=== PATIENT | male | born 1945 | race Two or more races ===

== ENCOUNTER → 2016-10-11 | Outpatient (CLI) | payer MEDICARE, BC, OTHER ==
--- NOTE | 2016-10-11 09:55 | REP ---
SCROTAL ULTRASOUND: Real-time sonographic evaluation of the scrotum and contents performed. Testicles appear normal in size and echotexture, right testicle measuring 3.8 x 2.1 x 3.2 cm and left testicle 4.2 x 2.3 x 3.2 cm. There is no testicular mass or torsion. Blood flow is seen in each testicle with duplex Doppler evaluation, resistive index of the right testicle 0.65 and left testicle 0.70. Reportedly there is a palpable abnormality of the right scrotum, which corresponds to an area of mild thickening of the wall of the scrotum with edema. This may represent inflammation. There is a small right hydrocele. No fluid collection is seen. IMPRESSION: Testicles appear normal. Palpable abnormality right scrotum corresponds to scrotal wall thickening and edema which may represent inflammatory change. There is a small right hydrocele. Signed by Jefe Villanueva MD 10/11/2016 08:06 P
== END ==
LOC: M RAD 08:36
PROVIDERS: ATTEND Physician Assistant
DX: N43.2 Other hydrocele (principal); N44.8 Other noninflammatory disorders of the testis

== ENCOUNTER → 2016-11-22 | Outpatient (CLI) | payer MEDICARE, BC, OTHER ==
--- NOTE | 2016-11-22 08:49 | REP ---
Scrotal sonography: History: Testicular pain. Hydrocele. Findings: High-resolution bilateral scrotal sonography is compared with the October 11, 2006 prior study. A small right hydrocele is again noted. The previously noted scrotal wall thickening is no longer apparent. There is no evidence of intratesticular mass lesion. Normal Doppler flow is again seen in both testes. Epididymides are unremarkable. No other abnormality. Right testis measures 4.1 x 1.9 x 3.1 cm. Left testicular dimensions are 4.5 x 2.0 x 2.7 cm. Doppler resistive indices are 0.63 bilaterally. Impression: Improved scrotal wall thickening. Small right hydrocele. Otherwise unremarkable scrotal sonography. Signed by Shahid Moctezuma MD 11/22/2016 03:36 P
== END ==
LOC: M RAD 06:44
PROVIDERS: ATTEND Urology
DX: N43.3 Hydrocele, unspecified (principal); N50.9 Disorder of male genital organs, unspecified

== ENCOUNTER → 2016-12-01 | Outpatient (CLI) | payer MEDICARE, BC, OTHER | LOC: M SMT 14:06 | PROVIDERS: ATTEND Urology | DX: N50.82 Scrotal pain (principal) | CPT/HCPCS: 36415; 81001; 84153; G0463 ==

== ENCOUNTER → 2017-02-27 | Outpatient (REF) | payer MEDICARE, OTHER ==
[2017-02-27 12:14] LABS: MEAN CORPUSCULAR HGB CONC 33.9 g/dl (32.0-36.5); MEAN CORPUSCULAR VOLUME 94.5 fl (80.0-96.0); RED CELL DISTRIBUTION WIDTH 13.5 % (11.5-14.5); WHITE BLOOD COUNT 6.8 K/mm3 (4.0-10.0)
[2017-02-27 13:38] LABS: ALBUMIN 3.5 GM/DL (3.2-5.2); ALBUMIN/GLOBULIN RATIO 1.21 (1.00-1.93); ALKALINE PHOSPHATASE 84 U/L (45-117); ALT/SGPT 44 U/L (12-78); ANION GAP 8 MEQ/L (8-16); AST/SGOT 25 U/L (15-37); BILIRUBIN,TOTAL 0.8 MG/DL (0.2-1.0); BLOOD UREA NITROGEN 18 MG/DL (7-18); CALCIUM LEVEL 8.2 MG/DL (8.8-10.2); CARBON DIOXIDE LEVEL 26 MEQ/L (21-32); CHLORIDE LEVEL 104 MEQ/L (98-107); CHOLESTEROL LEVEL 188 MG/DL (<200); CREATININE FOR GFR 0.82 MG/DL (0.70-1.30); GLOMERULAR FILTRATION RATE > 60.0 (>42); GLUCOSE, FASTING 87 MG/DL (83-110); POTASSIUM SERUM 4.1 MEQ/L (3.5-5.1); SODIUM LEVEL 138 MEQ/L (136-145); TOTAL PROTEIN 6.4 GM/DL (6.4-8.2); TRIGLYCERIDES LEVEL 181 MG/DL (<150)
== END ==
LOC: M SFHCPLAZ 07:55
PROVIDERS: ATTEND Family Medicine
DX: L30.4 Erythema intertrigo (principal); E78.00 Pure hypercholesterolemia, unspecified; Z11.59 Encounter for screening for other viral diseases

== ENCOUNTER → 2017-03-06 | Outpatient (REF) | payer MEDICARE, BC, OTHER ==
[2017-03-06 12:21] LABS: ALBUMIN 3.7 GM/DL (3.2-5.2); ALBUMIN/GLOBULIN RATIO 1.19 (1.00-1.93); BILIRUBIN,DIRECT 0.3 MG/DL (0.0-0.2); BILIRUBIN,TOTAL 1.2 MG/DL (0.2-1.0); TOTAL PROTEIN 6.8 GM/DL (6.4-8.2)
== END ==
LOC: M SFHCPLAZ 10:14
PROVIDERS: ATTEND Family Medicine
DX: E78.2 Mixed hyperlipidemia (principal)
CPT/HCPCS: 36415; 80076; G0463

== ENCOUNTER → 2017-06-20 | Outpatient (CLI) | payer MEDICARE, BC, OTHER ==
--- NOTE | 2017-06-20 12:16 | REP ---
Clinical: Back and flank pain. Comparison: 04/09/2010. Findings: Moderate acute right-sided obstructive uropathy including perinephric and periureteral stranding, mild hydroureteronephrosis and edematous enlargement to the right kidney is appreciated and secondary to a 3 mm obstructing calculus in the distal right ureter (image 129). Few nonobstructing right intrarenal calculi are also identified measuring up to approximately 4 mm. The left kidney demonstrates 1 mm nonobstructing calculus and hypodensities suggesting small cyst. The bladder is unremarkable. Liver, spleen, pancreas, gallbladder, and bilateral adrenal glands are normal for noncontrast evaluation. The enteric system is without obstruction or acute inflammatory process. Normal terminal ileum and appendix identified in the right lower quadrant. Pelvis demonstrates normal bladder and age-appropriate prostate/seminal vesicles. No ascites. No free air. No significant adenopathy. Abdominal aorta without aneurysm. Musculoskeletal structures demonstrate age-related degenerative changes. Lung bases are clear. Impression: Acute moderate right-sided obstructive uropathy with a 3 mm calculus in the distal right ureter. Bilateral nonobstructing calculi (right greater than left) up to 4 mm and suspected subcentimeter left renal cyst. Signed by Ernst Israel MD 06/20/2017 12:07 P
== END ==
LOC: M RAD 11:31
PROVIDERS: ATTEND Physician Assistant
DX: N13.4 Hydroureter (principal); N20.1 Calculus of ureter; N28.1 Cyst of kidney, acquired; M54.5 Low back pain; Z87.442 Personal history of urinary calculi

== ENCOUNTER → 2017-06-20 | Outpatient (CLI) | payer MEDICARE, BC, OTHER ==
--- NOTE | 2017-06-20 11:34 | REP ---
Clinical: History of nephroureterolithiasis. Comparison: 05/24/2010. Technique: Single supine view of the abdomen and pelvis. Findings: A 3 mm calculus overlies the lower pole right renal silhouette. Further evaluation of the urinary tract system is limited due to technique and overlying bowel gas pattern. No evidence for bowel obstruction. Skeletal structures demonstrate age-related degenerative changes. Stable phleboliths noted in the pelvis. Impression: Limited examination. Possible 3 mm nonobstructing right renal calculus. Further evaluation of the urinary check system is limited. Signed by Ernst Israel MD 06/20/2017 11:25 A
[2017-06-20 13:29] LABS: BASO % 0.4 % (0.0-1.0); EOS # 0.3 10^3/uL (0.0-0.50); IMMATURE GRANULOCYTE % 0.3 % (0-0); LYMPH # 1.3 10^3/uL (1.5-4.5); LYMPH % 12.2 % (24.0-44.0); MEAN CORPUSCULAR HEMOGLOBIN 32.1 pg (27.0-33.0); MEAN CORPUSCULAR HGB CONC 34.8 g/dl (32.0-36.5); MEAN CORPUSCULAR VOLUME 92.4 fl (80.0-96.0); MONO # 0.7 10^3/uL (0.0-0.8); MONO % 6.2 % (0.0-5.0); NEUTROPHILS # 8.2 10^3/uL (1.8-7.7); NEUTROPHILS % 77.9 % (36.0-66.0); PLATELET COUNT, AUTOMATED 211 10^3/uL (150-450); RED CELL DISTRIBUTION WIDTH 12.9 % (11.5-14.5); WHITE BLOOD COUNT 10.5 10^3/uL (4.0-10.0)
[2017-06-20 13:47] LABS: ALBUMIN 3.6 GM/DL (3.2-5.2); ALBUMIN/GLOBULIN RATIO 1.09 (1.00-1.93); ALKALINE PHOSPHATASE 107 U/L (45-117); ALT/SGPT 43 U/L (12-78); ANION GAP 8 MEQ/L (8-16); AST/SGOT 27 U/L (7-37); BILIRUBIN,TOTAL 1.3 MG/DL (0.2-1.0); BLOOD UREA NITROGEN 21 MG/DL (7-18); CARBON DIOXIDE LEVEL 26 MEQ/L (21-32); CHLORIDE LEVEL 108 MEQ/L (98-107); CREATININE FOR GFR 1.13 MG/DL (0.70-1.30); GLOMERULAR FILTRATION RATE > 60.0 (>42); GLUCOSE, FASTING 114 MG/DL (83-110); POTASSIUM SERUM 4.2 MEQ/L (3.5-5.1); SODIUM LEVEL 142 MEQ/L (136-145); TOTAL PROTEIN 6.9 GM/DL (6.4-8.2)
== END ==
LOC: M WUC 10:33
PROVIDERS: ATTEND Physician Assistant
DX: M54.5 Low back pain (principal); Z87.442 Personal history of urinary calculi

== ENCOUNTER → 2017-06-27 | Outpatient (REF) | payer MEDICARE, OTHER | LOC: M SMT 17:43 | PROVIDERS: ATTEND Nurse Practitioner Women's Health | DX: N13.2 Hydronephrosis with renal and ureteral calculous obstruction (principal) | CPT/HCPCS: 81001; 87086; G0463 ==

== ENCOUNTER → 2017-07-07 | Outpatient (CLI) | payer MEDICARE, BC, OTHER ==
[~2017-07-07] MED LIST: ATOR40TA75 PO; FLOM5CAP PO; TYLETAB14 PO
--- NOTE | 2017-07-07 12:06 | REP ---
Clinical: Nephroureterolithiasis. Technique: Single supine view of the abdomen and pelvis. Findings: A somewhat ovoid 3.5 mm calculus in the right maria luisa pelvis may reflect in the obstructing distal ureteral calculus identified on CT dated 06/20/2017 and correlation with physical examination is recommended. Further evaluation for urinary tract calcifications is limited due to technique and overlying bowel gas. There is no evidence for bowel obstruction. No obvious organomegaly. Skeletal structures demonstrate age-related degenerative changes. Impression: Cannot exclude 3.5 mm distal right ureteral calculus. Signed by Ernst Israel MD 07/07/2017 11:58 A
== END ==
LOC: M SMT 11:25
PROVIDERS: ATTEND Nurse Practitioner Women's Health
DX: N13.2 Hydronephrosis with renal and ureteral calculous obstruction (principal)
CPT/HCPCS: 74000; G0463

== ENCOUNTER → 2017-07-28 | Outpatient (CLI) | payer MEDICARE, BC, OTHER ==
--- NOTE | 2017-07-29 01:22 | ECGEPIP ---
Stationary ECG Study [facility] Test Date: 2017-07-28 Pat Name: ABDOULAYE BRINK Department: Room: - Gender: M [employer] Assistant: BEVERLY : 1945 Requested By: Becky HART Order Number: [id number] Reading MD: Thien Menchaca Measurements Intervals [place] Rate: 52 P: 25 OK: 202 QRS: 62 QRSD: 97 T: 35 QT: 406 QTc: 380 Interpretive Statements SINUS BRADYCARDIA Borderline first degree AV block Comparison tracing not on file Electronically Signed On 07-29-2017 1:22:04 EST by Thien Menchaca
== END ==
LOC: M EKG 13:37
PROVIDERS: ATTEND Nurse Practitioner Women's Health
DX: N13.2 Hydronephrosis with renal and ureteral calculous obstruction (principal); R94.31 Abnormal electrocardiogram [ECG] [EKG]

== ENCOUNTER → 2017-07-28 | Outpatient (CLI) | payer MEDICARE, BC, OTHER ==
--- NOTE | 2017-07-28 13:59 | REP ---
CHEST X-RAY: Two views. HISTORY: Ureteral stone with hydronephrosis. No comparison chest x-ray. FINDINGS: The lungs are well inflated and clear. The pleural angles are sharp. Cardiomediastinal silhouette is unremarkable. There are degenerative changes in the thoracic spine. No significant bony abnormality. IMPRESSION: No active disease. Signed by Shahid Moctezuma MD 07/28/2017 04:00 P
[2017-07-28 16:57] LABS: MEAN CORPUSCULAR HEMOGLOBIN 30.6 pg (27.0-33.0); MEAN CORPUSCULAR HGB CONC 33.2 g/dl (32.0-36.5); MEAN CORPUSCULAR VOLUME 92.3 fl (80.0-96.0); PLATELET COUNT, AUTOMATED 218 10^3/uL (150-450); WHITE BLOOD COUNT 6.7 10^3/uL (4.0-10.0)
[2017-07-28 17:09] LABS: INR 0.93
[2017-07-28 18:50] LABS: ANION GAP 3 MEQ/L (8-16); BLOOD UREA NITROGEN 16 MG/DL (7-18); CALCIUM LEVEL 8.8 MG/DL (8.8-10.2); CARBON DIOXIDE LEVEL 32 MEQ/L (21-32); CHLORIDE LEVEL 107 MEQ/L (98-107); GLOMERULAR FILTRATION RATE > 60.0 (>42); GLUCOSE, FASTING 86 MG/DL (83-110); POTASSIUM SERUM 4.8 MEQ/L (3.5-5.1); SODIUM LEVEL 142 MEQ/L (136-145)
== END ==
LOC: M SMT 13:10
PROVIDERS: ATTEND Nurse Practitioner Women's Health
DX: N13.2 Hydronephrosis with renal and ureteral calculous obstruction (principal)

== ENCOUNTER 2017-08-11 07:22 | Day surgery (SDC) | payer MEDICARE, BC, OTHER ==
[2017-08-11] MEDS ORDERED: PROPOFOL 200 MG/20 ML VIAL As Ordered (08:02)
[2017-08-11] MEDS ORDERED: LIDOCAINE 2% INJ 100 MG/5 ML SDV (FOR ANES.) As Ordered (08:02)
[2017-08-11] MEDS ORDERED: MIDAZOLAM INJ 2 MG/2 ML VIAL (J2250) As Ordered (08:03)
[2017-08-11] MEDS ORDERED: fentaNYL 100 MCG/2 ML INJECTION (J3010) As Ordered (08:03)
[2017-08-11] MEDS: LR 1,000 ML IV (08:15)
[2017-08-11] MEDS: CONRAY-60 60% 50ML VIAL (Q9961) As Ordered (09:23)
[2017-08-11] MEDS ORDERED: dexameTHASONE 4 MG/ML 1ML VIAL (J1100) As Ordered (09:36)
[2017-08-11] MEDS ORDERED: KETOROLAC 60 MG/2 ML VIAL (J1885) As Ordered (09:36)
[2017-08-11] MEDS ORDERED: ONDANSETRON 4MG/2ML VIAL (J2405) As Ordered (09:36)
[2017-08-11] MEDS ORDERED: fentaNYL 100 MCG/2 ML INJECTION (J3010) IV (10:30)
[2017-08-11] MEDS ORDERED: PERCOCET 5MG/325MG TAB PO ×2 (10:30)
[2017-08-11] MEDS ORDERED: ONDANSETRON 4MG/2ML VIAL (J2405) IV (10:30)
[2017-08-11] MEDS: PERCOCET 5MG/325MG TAB PO (11:05)
== END 2017-08-11 12:33 | disposition home or self-care (01) ==
LOC: M SDC 07:22
DX: N20.2 Calculus of kidney with calculus of ureter (principal); N13.1 Hydronephrosis with ureteral stricture, not elsewhere classified; N48.1 Balanitis; M54.40 Lumbago with sciatica, unspecified side; E78.5 Hyperlipidemia, unspecified; F34.1 Dysthymic disorder; F32.9 Major depressive disorder, single episode, unspecified; K57.90 Diverticulosis of intestine, part unspecified, without perforation or abscess without bleeding; E66.9 Obesity, unspecified; H91.10 Presbycusis, unspecified ear; Z79.899 Other long term (current) drug therapy; Z79.82 Long term (current) use of aspirin
CPT/HCPCS: 52356

== ENCOUNTER → 2017-08-25 | Outpatient (REF) | payer MEDICARE, OTHER | LOC: M SMT 17:05 | DX: R30.0 Dysuria (principal) | CPT/HCPCS: 87086 ==

== ENCOUNTER 2017-09-10 12:28 | Emergency (ER) | payer MEDICARE, BC, OTHER ==
[2017-09-10] MEDS: NS 1,000 ML IV (13:30)
[2017-09-10 13:35] LABS: BASO % 0.3 % (0.0-1.0); EOS # 0.4 10^3/uL (0.0-0.50); EOS % 3.5 % (0.0-3.0); HEMATOCRIT 39.5 % (42.0-52.0); HEMOGLOBIN 13.3 g/dl (14.0-18.0); IMMATURE GRANULOCYTE % 0.3 % (0-0); LYMPH % 16.8 % (24.0-44.0); MEAN CORPUSCULAR HEMOGLOBIN 30.5 pg (27.0-33.0); MEAN CORPUSCULAR HGB CONC 33.7 g/dl (32.0-36.5); MEAN CORPUSCULAR VOLUME 90.6 fl (80.0-96.0); MONO # 1.2 10^3/uL (0.0-0.8); MONO % 10.1 % (0.0-5.0); PLATELET COUNT, AUTOMATED 185 10^3/uL (150-450); RED BLOOD COUNT 4.36 10^6/uL (4.30-6.10); RED CELL DISTRIBUTION WIDTH 12.8 % (11.5-14.5); WHITE BLOOD COUNT 11.6 10^3/uL (4.0-10.0)
[2017-09-10 13:41] LABS: APPEARANCE, URINE HAZY (CLEAR); BACTERIA, URINE AUTO NEGATIVE (NEGATIVE); BILIRUBIN, URINE AUTO NEGATIVE (NEGATIVE); BLOOD, URINE BLOOD 2+ (NEGATIVE); COLOR, URINE YELLOW (YELLOW); GLUCOSE, URINE (UA) AUTO NEGATIVE (NEGATIVE); KETONE, URINE AUTO NEGATIVE (NEGATIVE); LEUKOCYTE ESTERASE, URINE AUTO NEGATIVE (NEGATIVE); MUCUS, URINE SMALL (NEGATIVE); NITRITE, URINE AUTO NEGATIVE (NEGATIVE); PROTEIN, URINE AUTO 1+ mg/dL (NEGATIVE); RBC, URINE AUTO 22 /HPF (0-3); SPECIFIC GRAVITY URINE AUTO 1.024 (1.002-1.035); SQUAMOUS EPITHELIAL CELL UR AU 0 /HPF (0-6); UROBILINOGEN, URINE AUTO 0.2 mg/dL (0.0-2.0); WBC, URINE AUTO 4 /HPF (0-3)
[2017-09-10 13:48] LABS: ANION GAP 7 MEQ/L (8-16); BLOOD UREA NITROGEN 22 MG/DL (7-18); CALCIUM LEVEL 8.2 MG/DL (8.8-10.2); CARBON DIOXIDE LEVEL 26 MEQ/L (21-32); CHLORIDE LEVEL 110 MEQ/L (98-107); CREATININE FOR GFR 1.13 MG/DL (0.70-1.30); GLOMERULAR FILTRATION RATE > 60.0 (>42); GLUCOSE, FASTING 131 MG/DL (70-100); POTASSIUM SERUM 3.5 MEQ/L (3.5-5.1); SODIUM LEVEL 143 MEQ/L (136-145)
[2017-09-10] MEDS: IMIPENEM/CILASTATIN 500 MG in D5W MINI-BAG PLUS 100 ML IV (14:37)
[2017-09-10] MEDS: LR 1,000 ML IV (14:37)
[2017-09-10 14:48] LABS: LACTIC ACID SEPSIS PROTOCOL 0.9 MMOL/L (0.4-2.0)
== END 2017-09-10 15:52 | disposition home or self-care (01) ==
LOC: M ED 12:28
DX: N13.30 Unspecified hydronephrosis (principal); Z96.0 Presence of urogenital implants; Z79.899 Other long term (current) drug therapy; Z79.82 Long term (current) use of aspirin
CPT/HCPCS: 74176

== ENCOUNTER → 2017-10-03 | Outpatient (REF) | payer MEDICARE, OTHER ==
[2017-10-03 13:58] LABS: APPEARANCE, URINE CLEAR (CLEAR); BACTERIA, URINE AUTO NEGATIVE (NEGATIVE); BILIRUBIN, URINE AUTO NEGATIVE (NEGATIVE); BLOOD, URINE BLOOD 2+ (NEGATIVE); COLOR, URINE YELLOW (YELLOW); GLUCOSE, URINE (UA) AUTO NEGATIVE (NEGATIVE); KETONE, URINE AUTO NEGATIVE (NEGATIVE); LEUKOCYTE ESTERASE, URINE AUTO TRACE (NEGATIVE); MUCUS, URINE SMALL (NEGATIVE); NITRITE, URINE AUTO NEGATIVE (NEGATIVE); PROTEIN, URINE AUTO NEGATIVE (NEGATIVE); RBC, URINE AUTO 1 /HPF (0-3); SPECIFIC GRAVITY URINE AUTO 1.008 (1.002-1.035); SQUAMOUS EPITHELIAL CELL UR AU 0 /HPF (0-6); UROBILINOGEN, URINE AUTO 0.2 mg/dL (0.0-2.0); WBC, URINE AUTO 7 /HPF (0-3)
== END ==
LOC: M SMT 13:32
DX: N13.5 Crossing vessel and stricture of ureter without hydronephrosis (principal)
CPT/HCPCS: 81001

== ENCOUNTER → 2017-10-05 | Outpatient (CLI) | payer MEDICARE, BC, OTHER | LOC: M SMT 08:58 | DX: N13.5 Crossing vessel and stricture of ureter without hydronephrosis (principal); N20.0 Calculus of kidney; N13.0 Hydronephrosis with ureteropelvic junction obstruction | CPT/HCPCS: 76770 ==

== ENCOUNTER → 2017-12-12 | Outpatient (REF) | payer MEDICARE, OTHER ==
[2017-12-12 18:26] LABS: AMORPHOUS SEDIMENT LARGE (NEGATIVE); APPEARANCE, URINE TURBID (CLEAR); BACTERIA, URINE AUTO NEGATIVE (NEGATIVE); BILIRUBIN, URINE AUTO NEGATIVE (NEGATIVE); BLOOD, URINE BLOOD NEGATIVE (NEGATIVE); COLOR, URINE YELLOW (YELLOW); GLUCOSE, URINE (UA) AUTO NEGATIVE (NEGATIVE); KETONE, URINE AUTO NEGATIVE (NEGATIVE); LEUKOCYTE ESTERASE, URINE AUTO NEGATIVE (NEGATIVE); NITRITE, URINE AUTO NEGATIVE (NEGATIVE); PROTEIN, URINE AUTO NEGATIVE (NEGATIVE); RBC, URINE AUTO 0 /HPF (0-3); SQUAMOUS EPITHELIAL CELL UR AU 0 /HPF (0-6); UROBILINOGEN, URINE AUTO 0.2 mg/dL (0.0-2.0); WBC, URINE AUTO 0 /HPF (0-3)
== END ==
LOC: M SMT 17:16
DX: R10.9 Unspecified abdominal pain (principal)
CPT/HCPCS: 81001

== ENCOUNTER → 2017-12-14 | Outpatient (CLI) | payer MEDICARE, BC, OTHER | LOC: M SMT 09:48 | DX: R10.9 Unspecified abdominal pain (principal); N20.0 Calculus of kidney; N28.1 Cyst of kidney, acquired | CPT/HCPCS: 76770 ==

== ENCOUNTER → 2017-12-18 | Outpatient (REF) | payer MEDICARE, OTHER ==
[2017-12-18 13:16] LABS: ALBUMIN 3.4 GM/DL (3.2-5.2); ALKALINE PHOSPHATASE 111 U/L (45-117); ALT/SGPT 36 U/L (12-78); ANION GAP 7 MEQ/L (8-16); AST/SGOT 23 U/L (7-37); BILIRUBIN,TOTAL 1.2 MG/DL (0.2-1.0); BLOOD UREA NITROGEN 18 MG/DL (7-18); CALCIUM LEVEL 8.6 MG/DL (8.8-10.2); CARBON DIOXIDE LEVEL 27 MEQ/L (21-32); CHLORIDE LEVEL 110 MEQ/L (98-107); CHOLESTEROL LEVEL 123 MG/DL (<200); CHOLESTEROL RISK RATIO 2.084 (<5); CREATININE FOR GFR 0.91 MG/DL (0.70-1.30); GLOMERULAR FILTRATION RATE > 60.0 (>42); GLUCOSE, FASTING 94 MG/DL (70-100); HDL CHOLESTEROL 59 MG/DL (>40); LDL CHOLESTEROL 52.4 MG/DL (<100); NON-HDL-C 64 MG/DL; POTASSIUM SERUM 4.3 MEQ/L (3.5-5.1); SODIUM LEVEL 144 MEQ/L (136-145); TOTAL PROTEIN 6.8 GM/DL (6.4-8.2); TRIGLYCERIDES LEVEL 58 MG/DL (<150)
== END ==
LOC: M SFHCPLAZ 09:01
DX: E78.2 Mixed hyperlipidemia (principal); R17 Unspecified jaundice
CPT/HCPCS: 80053

== ENCOUNTER → 2017-12-25 | Outpatient (CLI) | payer MEDICARE, OTHER | LOC: M LAB 10:44 | DX: M51.36 Other intervertebral disc degeneration, lumbar region (principal); M51.37 Other intervertebral disc degeneration, lumbosacral region; M41.86 Other forms of scoliosis, lumbar region; M43.16 Spondylolisthesis, lumbar region; M25.78 Osteophyte, vertebrae; M54.40 Lumbago with sciatica, unspecified side; M54.10 Radiculopathy, site unspecified | CPT/HCPCS: 72114 ==

== ENCOUNTER → 2017-12-27 | Outpatient (CLI) | payer MEDICARE, BC, OTHER | LOC: M RAD 16:04 | DX: M54.40 Lumbago with sciatica, unspecified side (principal) | CPT/HCPCS: 72148 ==

== ENCOUNTER → 2018-01-22 | Outpatient (CLI) | payer MEDICARE, BC, OTHER | LOC: M RAD 12:24 | DX: N13.5 Crossing vessel and stricture of ureter without hydronephrosis (principal); N28.1 Cyst of kidney, acquired | CPT/HCPCS: 76775 ==

== ENCOUNTER → 2019-01-11 | Outpatient (CLI) | payer MEDICARE, BC, OTHER ==
[~2019-01-11] MED LIST changes: +ASPI81TA26 PO; +ESTE500T PO; +FISH500C PO; +FLOM0.4C39 PO; -FLOM5CAP PO; +GLUC1CAP10 PO; +OXYCOD/APAP PO
--- NOTE | 2019-01-11 14:35 | REP ---
REASON: Right knee pain. No trauma. No priors. FINDINGS: The compartments are symmetric and relatively well maintained. There is no acute fracture or destructive osseous lesion. If bursitis is of clinical concern, then consider MRI to search for Addison's cyst or a joint effusion. The infrapatellar soft tissues do appears to be somewhat full, however, this can not be well evaluated with plain radiography. Electronically Signed by Endy Kiser DO 01/11/2019 04:45 P
== END ==
LOC: M SMT 13:10
PROVIDERS: ATTEND Obstetrics & Gynecology
DX: M70.51 Other bursitis of knee, right knee (principal)
CPT/HCPCS: 73564; G0463

== ENCOUNTER → 2019-01-25 | Outpatient (REF) | payer MEDICARE, OTHER ==
[2019-01-25 12:04] LABS: SOURCE, BODY FLUID RT KNEE; SYNOVIAL FLUID COLOR AMBER (YELLOW)
[2019-01-25 12:08] LABS: CRYSTALS, BODY FLUID NONE SEEN (NONE SEEN); SOURCE, BODY FLUID CRYSTALS RT KNEE
[2019-01-25 12:15] LABS: SOURCE, BODY FLUID GLUCOSE RT KNEE; SOURCE, BODY FLUID URIC ACID RT KNEE; URIC ACID, BODY FLUID 4.4 MG/DL (NOT ESTABLISHED)
[2019-01-25 12:34] LABS: BODY FLUID RHEUMATOID SCREEN NEGATIVE (NEGATIVE)
[2019-01-25 12:37] LABS: MUCIN CLOT TEST 2+ (4+)
== END ==
LOC: M SFHCPLAZ 11:42
PROVIDERS: ATTEND Obstetrics & Gynecology
DX: M70.51 Other bursitis of knee, right knee (principal)
CPT/HCPCS: 20610; 82945; 83872; 84560; 86430; 87070; 87076; 87205; 89051; 89060; G0463

== ENCOUNTER → 2019-04-25 | Outpatient (CLI) | payer MEDICARE, OTHER ==
[2019-04-25 13:40] LABS: ALBUMIN 3.6 GM/DL (3.2-5.2); ALT/SGPT 45 U/L (12-78); BILIRUBIN,TOTAL 1.4 MG/DL (0.2-1.0); BLOOD UREA NITROGEN 18 MG/DL (7-18); CALCIUM LEVEL 8.5 MG/DL (8.8-10.2); CARBON DIOXIDE LEVEL 29 MEQ/L (21-32); CHLORIDE LEVEL 108 MEQ/L (98-107); CHOLESTEROL LEVEL 144 MG/DL (<200); CREATININE FOR GFR 0.85 MG/DL (0.70-1.30); GLOMERULAR FILTRATION RATE > 60.0 (>42); GLUCOSE, FASTING 94 MG/DL (70-100); HDL CHOLESTEROL 61 MG/DL (>40); LDL CHOLESTEROL 69 MG/DL (<100); NON-HDL-C 83 MG/DL; POTASSIUM SERUM 4.5 MEQ/L (3.5-5.1); SODIUM LEVEL 143 MEQ/L (136-145); TOTAL PROTEIN 6.7 GM/DL (6.4-8.2); TRIGLYCERIDES LEVEL 70 MG/DL (<150)
== END ==
LOC: M WUC 08:45
PROVIDERS: ATTEND Family Medicine
DX: E78.2 Mixed hyperlipidemia (principal); E83.10 Disorder of iron metabolism, unspecified; N20.0 Calculus of kidney

== ENCOUNTER → 2022-10-21 | Outpatient (REF) | payer MEDICARE, OTHER ==
[2022-10-21 19:09] LABS: HEMOGLOBIN A1c 5.6 % (4.0-6.0)
== END ==
LOC: M LAB REF 16:18
PROVIDERS: ATTEND Internal Medicine
DX: R73.01 Impaired fasting glucose (principal)

== ENCOUNTER 2023-02-16 10:41 | Day surgery (SDC) | payer MEDICARE, BC, OTHER ==
[~2023-02-16] VITALS: Ht 167.6 cm; Wt 78.8 kg
[~2023-02-16 10:41] MED LIST changes: +DULO1CAP5 PO; +NS 1,000 ML IV ONE
[2023-02-16] MEDS ORDERED: LIDOCAINE 2% 100MG/5ML SDV (FOR ANES.) As Ordered ONE (11:28)
[2023-02-16] MEDS ORDERED: propofoL 200 MG/20 ML VIAL As Ordered ONE (11:28)
[2023-02-16] MEDS ORDERED: ePHEDrine SULFATE 25 MG/5 ML(5MG/ML) SYRINGE As Ordered ONE (12:16)
[2023-02-16 12:28] VITALS: TEMP 96.2
[2023-02-16 13:00] VITALS: BP 130/68; O2SAT 95
== END 2023-02-16 13:26 | disposition home or self-care (01) ==
LOC: M OPP 10:41
PROVIDERS: ATTEND Surgery
DX: Z12.11 Encounter for screening for malignant neoplasm of colon (principal); Z86.010 Personal history of colon polyps; K57.30 Diverticulosis of large intestine without perforation or abscess without bleeding; Z79.899 Other long term (current) drug therapy

== ENCOUNTER → 2023-05-24 | Outpatient (REF) | payer MEDICARE, BC, OTHER ==
[~2023-05-24] MED LIST changes: -NS 1,000 ML IV ONE
== END ==
LOC: M LAB REF 16:27
PROVIDERS: ATTEND Internal Medicine
DX: R20.2 Paresthesia of skin (principal); R42 Dizziness and giddiness

== ENCOUNTER → 2023-08-05 | Outpatient (CLI) | payer MEDICARE, BC, OTHER | LOC: M PLARAD 13:23 | PROVIDERS: ATTEND Internal Medicine | DX: R51.9 Headache, unspecified (principal) ==

== ENCOUNTER → 2024-11-04 | Outpatient (REF) | payer MEDICARE, BC, OTHER | LOC: M LAB REF 12:08 | PROVIDERS: ATTEND Internal Medicine | DX: E53.8 Deficiency of other specified B group vitamins (principal) ==